=== PATIENT | female | born 1985 | race Caucasian/White ===

== ENCOUNTER 2020-04-03 10:46 | Emergency (ER) | payer BC, SELFPAY ==
[2020-04-03 11:04] VITALS: BP 124/81; PULSE 118; RESP 18; TEMP 36.8; O2SAT 100; BMI 27.4
--- NOTE | 2020-04-03 11:17 | DI.RAD.S_ITS ---
PROCEDURE: XR CHEST 1V INDICATIONS: chest pain TECHNIQUE: One view of the chest was acquired. COMPARISON: None. FINDINGS: Surgical changes and devices: None. Lungs and pleura: Lungs are clear. No pleural effusions or pneumothorax. Mediastinum: Mediastinal contours appear normal. Heart size is normal. Bones and chest wall: No suspicious bony lesions. Overlying soft tissues appear unremarkable. IMPRESSION: Portable chest within normal limits. Dictated by: Brian Garcia M.D. on 04/03/2020 at 10:40 Approved by: Brian Garcia M.D. on 04/03/2020 at 10:40
[2020-04-03 11:30] LABS: Add Manual Diff / Slide Review NO; Basophils Absolute Auto 100 /uL (0-100); Basophils Percent Auto 0.4 % (0-2); Eosinophils Absolute Auto 0 /uL (0-450); Hematocrit 34.2 % (36-46); Hemoglobin 10.9 g/dL (12.0-16.0); Lymphocytes Absolute Auto 1500 /uL (1100-4500); Lymphocytes Percent Auto 10.9 % (25-40); Mean Corpuscular HGB Conc 31.9 % (30-36); Mean Corpuscular Hemoglobin 25.4 PG (26-34); Mean Corpuscular Volume 79.9 fL (80-100); Monocytes Absolute Auto 800 /uL (0-900); Monocytes Percent Auto 6.1 % (3-14); Neutrophils Absolute Auto 11100 /uL (1500-7000); Neutrophils Percent Auto 82.6 % (50-75); Platelet Count 319 X10^3/uL (150-400); Red Blood Cell Count 4.28 X10^6/uL (4.0-5.2); Red Cell Distribution Width 14.9 % (11.6-14.8); White Blood Cell Count 13.4 X10^3/uL (4.5-11.0)
--- NOTE | 2020-04-03 11:30 | ED_ITS ---
HPI - Arrhythmia/Palpitations <BETTY MonroeBC - Last Filed: 04/03/20 16:30> General Chief Complaint: Arrhythmia/Palpitations Stated Complaint: issues with heart racing, feeling shaky Time Seen by Provider: 04/03/20 11:01 Source: patient Mode of arrival: Ambulatory Limitations: no limitations History of Present Illness HPI narrative: The patient is a 34-year-old female nonsmoker with history of appendectomy who presents with a chief complaint of high her rate and palpitations over the past few days. She states that she has a history of tachycardia, was diagnosed in emergency department several years ago and never followed up with anybody. She states that she has felt shaky with a high heart rate over the past 2 days. She states she feels some pressure in her chest. She denies any recent flights or immobility. She denies any hormone use. She denies any other cardiac history, denies any daily medications. She does note that she recently stopped taking escitalopram as she thought that the palpitations related to this. She has had 4 episodes of palpitations such as these for year, the longest episode has lasted for 4 days. She denies any cough, congestion, states she feels shaky and weak. She complains of lightheadedness dizziness. She has not taken anything to feel better. She states she is eating and drinking well, her states that she had water last night with crackers, but then had upset stomach. She has no specific coronavirus exposures. Related Data Previous Rx's Medication Instructions Recorded metoprolol tartrate 25 mg PO Q6H PRN #20 tab 04/03/20 Allergies Allergy/AdvReac Type Severity Reaction Status Date / Time No Known Drug Allergies Allergy Verified 04/03/20 11:59 Review of Systems <BETTY MonroeBC - Last Filed: 04/03/20 16:30> Review of Systems Narrative: GENERAL: Denies chills, fatigue, malaise, fever, sweats. HEENT: Denies sinus pain, ear pain, sore throat, difficulty swallowing, dizziness. RESPIRATORY: Denies dyspnea, cough, wheezing, hemoptysis, sputum. CARDIOVASCULAR: See HPI GASTROINTESTINAL: Denies nausea, vomiting, abdominal pain, diarrhea, constipation, melena. : Denies dysuria, frequency, incontinence, hematuria, urinary retention. MUSCULOSKELETAL: denies weakness, joint pain, or bony pain SKIN: Denies rash, skin lesions, or other NEUROLOGIC: Denies weakness, headache, numbness, change in speech, confusion, seizures, incoordination. PSYCHIATRIC: No concerning psychosocial issues. 12 point review of systems is negative except for those stated above Patient History <Moni MARGA Fleming-BC - Last Filed: 04/03/20 16:30> Social History Smoking Status: Never smoker Smoking Status: Never smoker Substance Use Type: does not use Exam <Moni BETTY FlemingBC - Last Filed: 04/03/20 16:30> Narrative Exam Narrative: GENERAL: This is a well-nourished, well-developed patient, appears anxious. HEAD: Atraumatic. Normocephalic. No temporal or scalp tenderness. EYES: Pupils equal round and reactive. Extraocular motions intact. No scleral icterus. No injection or drainage. ENT: Nose without bleeding, purulent drainage or septal hematoma. Throat without erythema, tonsillar hypertrophy or exudate. Uvula midline. Airway patent. NECK: Trachea midline. No JVD or lymphadenopathy. Supple, nontender, no meningeal signs. CARDIOVASCULAR: Tachycardic rate and regular rhythm RESPIRATORY: Clear to auscultation. Breath sounds equal bilaterally. No wheezes, rales, or rhonchi. No cough. No increased respiratory effort. No accessory muscle use. GASTROINTESTINAL: Abdomen soft, non-tender, nondistended. No hepato- splenomegaly, or palpable masses. No guarding. EXTREMITIES: No clubbing, cyanosis, or edema. No joint tenderness, effusion, or edema noted. BACK: Nontender without deformity or crepitance. No flank tenderness. NEURO: AOx3. SKIN: No rash or erythema on visible skin Initial Vital Signs Initial Vital Signs: Vital Signs Temperature 98.2 F 04/03/20 11:04 Pulse Rate 118 H 04/03/20 11:04 Respiratory Rate 18 04/03/20 11:04 Blood Pressure 124/81 04/03/20 11:04 Pulse Oximetry 100 04/03/20 11:04 <Lia Anderson MD - Last Filed: 04/04/20 07:34> Initial Vital Signs Initial Vital Signs: Vital Signs Temperature 98.2 F 04/03/20 11:04 Pulse Rate 118 H 04/03/20 11:04 Respiratory Rate 18 04/03/20 11:04 Blood Pressure 124/81 04/03/20 11:04 Pulse Oximetry 100 04/03/20 11:04 Scores <GILBERTO Monroe - Last Filed: 04/03/20 16:30> GCS Agar coma scale eye opening: Spontaneous Vin coma scale verbal response: Orientated Agar coma scale motor response: Obey commands Vin coma scale total score: 15 HEART Score Heart Score history: Slightly Suspicious Heart Score EKG: Normal Heart Score Age: < 45 years old Heart Score risk factors: No known risk factors Heart Score troponin: < or = to normal limit Heart Score Total: 0 Course <GILBERTO Monroe - Last Filed: 04/03/20 16:30> Orders Ordered: Discontinued Medications Sodium Chloride (Normal Saline 0.9%) 1,000 mls @ 1,000 mls/hr IV BOLUS ONE Stop: 04/03/20 12:16 Last Infusion: 04/03/20 13:04 Dose: 0 mls/hr Documented by: Admin: 04/03/20 12:10 Dose: 1,000 mls/hr Documented by: ESEQUIEL Sodium Chloride (Normal Saline 0.9%) 1,000 mls @ 1,000 mls/hr IV BOLUS ONE Stop: 04/03/20 14:15 Last Infusion: 04/03/20 14:58 Dose: 0 mls/hr Documented by: Admin: 04/03/20 13:21 Dose: 1,000 mls/hr Documented by: ESEQUIEL Metoprolol Tartrate (Metoprolol Ir 25 Mg Tablet) 25 mg PO NOW ONE Stop: 04/03/20 14:16 Last Admin: 04/03/20 14:27 Dose: 25 mg Documented by: ESEQUIEL Ondansetron HCl (Ondansetron 4 Mg/2 Ml Inj) 4 mg IV NOW ONE Stop: 04/03/20 11:18 Last Admin: 04/03/20 12:10 Dose: 4 mg Documented by: ESEQUIEL Vital Signs Vital signs: Vital Signs - 8 hr 04/03/20 11:04 04/03/20 12:53 04/03/20 14:30 Temperature 98.2 F Pulse Rate 118 H 117 H 112 H Pulse Rate [Orthostatic Lying] Pulse Rate [Orthostatic Sitting] Pulse Rate [Orthostatic Standing] Respiratory Rate 18 35 H 25 H Blood Pressure 124/81 103/64 107/63 Blood Pressure [Orthostatic Lying] Blood Pressure [Orthostatic Sitting] Blood Pressure [Orthostatic Standing] Pulse Oximetry 100 100 99 04/03/20 15:41 Temperature Pulse Rate Pulse Rate [Orthostatic Lying] 89 Pulse Rate [Orthostatic Sitting] 92 H Pulse Rate [Orthostatic Standing] 83 Respiratory Rate Blood Pressure Blood Pressure [Orthostatic Lying] 98/54 L Blood Pressure [Orthostatic Sitting] 116/73 Blood Pressure [Orthostatic Standing] 112/70 Pulse Oximetry <Lia Anderson MD - Last Filed: 04/04/20 07:34> Orders Ordered: Discontinued Medications Sodium Chloride (Normal Saline 0.9%) 1,000 mls @ 1,000 mls/hr IV BOLUS ONE Stop: 04/03/20 12:16 Last Infusion: 04/03/20 13:04 Dose: 0 mls/hr Documented by: Admin: 04/03/20 12:10 Dose: 1,000 mls/hr Documented by: ESEQUIEL Sodium Chloride (Normal Saline 0.9%) 1,000 mls @ 1,000 mls/hr IV BOLUS ONE Stop: 04/03/20 14:15 Last Infusion: 04/03/20 14:58 Dose: 0 mls/hr Documented by: Admin: 04/03/20 13:21 Dose: 1,000 mls/hr Documented by: ESEQUIEL Metoprolol Tartrate (Metoprolol Ir 25 Mg Tablet) 25 mg PO NOW ONE Stop: 04/03/20 14:16 Last Admin: 04/03/20 14:27 Dose: 25 mg Documented by: ESEQUIEL Ondansetron HCl (Ondansetron 4 Mg/2 Ml Inj) 4 mg IV NOW ONE Stop: 04/03/20 11:18 Last Admin: 04/03/20 12:10 Dose: 4 mg Documented by: ESEQUIEL Vital Signs Vital signs: Vital Signs - 8 hr 04/03/20 11:04 04/03/20 12:53 04/03/20 14:30 Temperature 98.2 F Pulse Rate 118 H 117 H 112 H Pulse Rate [Orthostatic Lying] Pulse Rate [Orthostatic Sitting] Pulse Rate [Orthostatic Standing] Respiratory Rate 18 35 H 25 H Blood Pressure 124/81 103/64 107/63 Blood Pressure [Orthostatic Lying] Blood Pressure [Orthostatic Sitting] Blood Pressure [Orthostatic Standing] Pulse Oximetry 100 100 99 04/03/20 15:41 Temperature Pulse Rate Pulse Rate [Orthostatic Lying] 89 Pulse Rate [Orthostatic Sitting] 92 H Pulse Rate [Orthostatic Standing] 83 Respiratory Rate Blood Pressure Blood Pressure [Orthostatic Lying] 98/54 L Blood Pressure [Orthostatic Sitting] 116/73 Blood Pressure [Orthostatic Standing] 112/70 Pulse Oximetry MDM - Arrhythmia/Palpitations <Moni Fleming, HOME MANAGER-BC - Last Filed: 04/03/20 16:30> Lab Data Attestation: I reviewed the patient's lab results. Result diagrams: 04/03/20 11:12 04/03/20 11:12 Labs: Lab Results 04/03/20 04/03/20 04/03/20 Range/Units 11:12 11:12 11:12 WBC 13.4 H (4.5-11.0) X10^3/uL RBC 4.28 (4.0-5.2) X10^6/uL Hgb 10.9 L (12.0-16.0) g/dL Hct 34.2 L (36-46) % MCV 79.9 L (80-100) fL MCH 25.4 L (26-34) PG MCHC 31.9 (30-36) % RDW 14.9 H (11.6-14.8) % Plt Count 319 (150-400) X10^3/uL Neut % (Auto) 82.6 H (50-75) % Lymph % (Auto) 10.9 L (25-40) % [place] % (Auto) 6.1 (3-14) % Eos % (Auto) 0.0 L (2-4) % Baso % (Auto) 0.4 (0-2) % Neut # (Auto) 58029 H (1006-3753) /uL Lymph # (Auto) 1500 (5755-2985) /uL [place] # (Auto) 800 (0-900) /uL Eos # (Auto) 0 (0-450) /uL Baso # (Auto) 100 (0-100) /uL PT 12.2 (10.1-12.7) SECONDS INR 1.1 (0.9-1.3) APTT 31 (26.4-36.2) SECONDS Sodium 138 (137-145) mmol/L Potassium 3.8 (3.4-5.1) mmol/L Chloride 105 (98-107) mmol/L Carbon Dioxide 24 (22-32) mmol/L BUN 6 L (7-17) mg/dL Creatinine 0.71 (0.52-1.04) mg/dL Estimated GFR > 60.0 (>60) mL/min BUN/Creatinine Ratio 8.5 (6-22) Glucose 105 H (70-100) mg/dL Calcium 9.3 (8.4-10.2) mg/dL Magnesium 1.9 (1.6-2.3) mg/dL Total Bilirubin 0.7 (0.2-1.3) mg/dL AST 31 (14-36) IU/L ALT 14 (<35) IU/L Alkaline Phosphatase 65 (38-126) U/L Total Creatine Kinase 67 (30-135) U/L CK-MB (CK-2) TNP CK-MB (CK-2) Rel Index TNP Troponin I < 0.012 (0.01-0.034) ng/mL NT-Pro-B Natriuret Pep 105 (<125) pg/mL Total Protein 7.5 (6.3-8.2) g/dL Albumin 4.5 (3.5-5.0) g/dL Globulin 3.0 (1.7-4.1) g/dL Albumin/Globulin Ratio 1.5 (1.0-2.8) TSH (0.47-4.68) uIU/mL Urine RBC (0-5/HPF) Urine WBC (0-5/HPF) Ur Squamous Epith Cells (0-5/HPF) Urine Bacteria (None) Ur Culture Indicated? U Opiates 300ng/mL cut (Negative) Ur Oxycodone Screen (Negative) Urine Methadone Screen (Negative) Ur Barbiturates Screen (Negative) U Tricyclic Antidepress (Negative) Ur Phencyclidine Scrn (Negative) Ur Amphetamines Screen (Negative) U Methamphetamines Scrn (Negative) Ur MDMA Scrn (Ecstasy) (Negative) U Benzodiazepines Scrn (Negative) Urine Cocaine Screen (Negative) U Marijuana (THC) Screen (Negative) SARS-CoV-2 (PCR) (Negative) 04/03/20 04/03/20 04/03/20 Range/Units 11:12 11:24 12:29 WBC (4.5-11.0) X10^3/uL RBC (4.0-5.2) X10^6/uL Hgb (12.0-16.0) g/dL Hct (36-46) % MCV (80-100) fL MCH (26-34) PG MCHC (30-36) % RDW (11.6-14.8) % Plt Count (150-400) X10^3/uL Neut % (Auto) (50-75) % Lymph % (Auto) (25-40) % [place] % (Auto) (3-14) % Eos % (Auto) (2-4) % Baso % (Auto) (0-2) % Neut # (Auto) (1750-0805) /uL Lymph # (Auto) (7077-7670) /uL [place] # (Auto) (0-900) /uL Eos # (Auto) (0-450) /uL Baso # (Auto) (0-100) /uL PT (10.1-12.7) SECONDS INR (0.9-1.3) APTT (26.4-36.2) SECONDS Sodium (137-145) mmol/L Potassium (3.4-5.1) mmol/L Chloride (98-107) mmol/L Carbon Dioxide (22-32) mmol/L BUN (7-17) mg/dL Creatinine (0.52-1.04) mg/dL Estimated GFR (>60) mL/min BUN/Creatinine Ratio (6-22) Glucose (70-100) mg/dL Calcium (8.4-10.2) mg/dL Magnesium (1.6-2.3) mg/dL Total Bilirubin (0.2-1.3) mg/dL AST (14-36) IU/L ALT (<35) IU/L Alkaline Phosphatase (38-126) U/L Total Creatine Kinase (30-135) U/L CK-MB (CK-2) CK-MB (CK-2) Rel Index Troponin I (0.01-0.034) ng/mL NT-Pro-B Natriuret Pep (<125) pg/mL Total Protein (6.3-8.2) g/dL Albumin (3.5-5.0) g/dL Globulin (1.7-4.1) g/dL Albumin/Globulin Ratio (1.0-2.8) TSH 1.72 (0.47-4.68) uIU/mL Urine RBC 0-1/hpf (0-5/HPF) Urine WBC None seen (0-5/HPF) Ur Squamous Epith Cells 1-5 /hpf (0-5/HPF) Urine Bacteria Few (2-10) H (None) Ur Culture Indicated? Cult not indicated U Opiates 300ng/mL cut (Negative) Ur Oxycodone Screen (Negative) Urine Methadone Screen (Negative) Ur Barbiturates Screen (Negative) U Tricyclic Antidepress (Negative) Ur Phencyclidine Scrn (Negative) Ur Amphetamines Screen (Negative) U Methamphetamines Scrn (Negative) Ur MDMA Scrn (Ecstasy) (Negative) U Benzodiazepines Scrn (Negative) Urine Cocaine Screen (Negative) U Marijuana (THC) Screen (Negative) SARS-CoV-2 (PCR) Negative (Negative) 04/03/20 Range/Units 12:59 WBC (4.5-11.0) X10^3/uL RBC (4.0-5.2) X10^6/uL Hgb (12.0-16.0) g/dL Hct (36-46) % MCV (80-100) fL MCH (26-34) PG MCHC (30-36) % RDW (11.6-14.8) % Plt Count (150-400) X10^3/uL Neut % (Auto) (50-75) % Lymph % (Auto) (25-40) % [place] % (Auto) (3-14) % Eos % (Auto) (2-4) % Baso % (Auto) (0-2) % Neut # (Auto) (9886-3949) /uL Lymph # (Auto) (9854-4177) /uL [place] # (Auto) (0-900) /uL Eos # (Auto) (0-450) /uL Baso # (Auto) (0-100) /uL PT (10.1-12.7) SECONDS INR (0.9-1.3) APTT (26.4-36.2) SECONDS Sodium (137-145) mmol/L Potassium (3.4-5.1) mmol/L Chloride (98-107) mmol/L Carbon Dioxide (22-32) mmol/L BUN (7-17) mg/dL Creatinine (0.52-1.04) mg/dL Estimated GFR (>60) mL/min BUN/Creatinine Ratio (6-22) Glucose (70-100) mg/dL Calcium (8.4-10.2) mg/dL Magnesium (1.6-2.3) mg/dL Total Bilirubin (0.2-1.3) mg/dL AST (14-36) IU/L ALT (<35) IU/L Alkaline Phosphatase (38-126) U/L Total Creatine Kinase (30-135) U/L CK-MB (CK-2) CK-MB (CK-2) Rel Index Troponin I (0.01-0.034) ng/mL NT-Pro-B Natriuret Pep (<125) pg/mL Total Protein (6.3-8.2) g/dL Albumin (3.5-5.0) g/dL Globulin (1.7-4.1) g/dL Albumin/Globulin Ratio (1.0-2.8) TSH (0.47-4.68) uIU/mL Urine RBC (0-5/HPF) Urine WBC (0-5/HPF) Ur Squamous Epith Cells (0-5/HPF) Urine Bacteria (None) Ur Culture Indicated? U Opiates 300ng/mL cut Negative (Negative) Ur Oxycodone Screen Negative (Negative) Urine Methadone Screen Negative (Negative) Ur Barbiturates Screen Negative (Negative) U Tricyclic Antidepress Negative (Negative) Ur Phencyclidine Scrn Negative (Negative) Ur Amphetamines Screen Negative (Negative) U Methamphetamines Scrn Negative (Negative) Ur MDMA Scrn (Ecstasy) Negative (Negative) U Benzodiazepines Scrn Negative (Negative) Urine Cocaine Screen Negative (Negative) U Marijuana (THC) Screen Negative (Negative) SARS-CoV-2 (PCR) (Negative) Point of Care Testing Test Results Negative Urine Dip Bedside Urine Glucose Negative Bedside Urine Bilirubin - Negative Bedside Urine Ketone +++ 80 Urine Specific [place] 1.015 Bedside Urine Occult Blood - Negative Bedside Urine pH 6.0 Bedside Urine Protein - Negative Bedside Urine Urobilinogen - Negative Bedside Urine Nitrite - Negative Bedside Urine Leukocytes - Negative Esterase Imaging Data Chest x-ray: Radiologist's Impresson: [address] [place], [place] [id number] Rep ortSigned Patient: Penny Guardado LynnMR#: [id number]: [id number]:[id number]/Sex: 34 / FDate of Service: 04/03/20Loc: EDAccession Number: [id number] Procedure: XR chest 1V Ordering Provider: Moni Fleming PROCEDURE: XR CHEST 1V INDICATIONS: chest pain TECHNIQUE: One view of the chest was acquired. COMPARISON: None. FINDINGS: Surgical changes and devices: None. Lungs and pleura: Lungs are clear. No pleural effusions or pneumothorax. Mediastinum: Mediastinal contours appear normal. Heart size is normal. Bones and chest wall: No suspicious bony lesions. Overlying soft tissues appear unremarkable. IMPRESSION: Portable chest within normal limits. Dictated by: Brian Garcia M.D. on 04/03/2020 at 10:40 Approved by: Brian Garcia M.D. on 04/03/2020 at 10:40 ECG Data Attestation: I personally reviewed and interpreted this ECG as follows: Interpretation: Sinus tachycardia. Ventricular rate 114. P.r. interval 152. QRS 78. viewed by Dr Anderson MDM Narrative Medical decision making narrative: The patient is a 34-year-old female who presents with a chief complaint of a persistently high heart rate for the past few days. She has a history of tachycardia for which she has never followed up with anybody. EKG shows sinus tachycardia, chest x-ray is no acute findings, troponin is negative, BNP is negative, TSH is within normal limits. Given her persistently tachycardic status, she was given a CT to rule out pulmonary em bolism in this came back negative. She was given 2 L of IV fluid. However she still remains tachycardic in the low to mid 100s. I spoke with Dr Anderson who encourage trial of 25 mg p.o. metoprolol as needed. With metoprolol, the patient became sinus rhythm, heart rate in the high 80s and felt much better. I discussed at length with the patient that she needs follow-up with primary care provider, she may benefit from a Holter monitor or Zio patch. I did give her a few days off of work. Encouraged very strict return precautions the emergency department for any cardiac concerns etcetera. Patient part of no questions or concerns upon discharge and state understanding of return precautions as well as follow-up care. <Lia Anderson MD - Last Filed: 04/04/20 07:34> Lab Data Labs: Lab Results 04/03/20 04/03/20 04/03/20 Range/Units 11:12 11:12 11:12 WBC 13.4 H (4.5-11.0) X10^3/uL RBC 4.28 (4.0-5.2) X10^6/uL Hgb 10.9 L (12.0-16.0) g/dL Hct 34.2 L (36-46) % MCV 79.9 L (80-100) fL MCH 25.4 L (26-34) PG MCHC 31.9 (30-36) % RDW 14.9 H (11.6-14.8) % Plt Count 319 (150-400) X10^3/uL Neut % (Auto) 82.6 H (50-75) % Lymph % (Auto) 10.9 L (25-40) % [place] % (Auto) 6.1 (3-14) % Eos % (Auto) 0.0 L (2-4) % Baso % (Auto) 0.4 (0-2) % Neut # (Auto) 45627 H (0473-8713) /uL Lymph # (Auto) 1500 (9253-5970) /uL [place] # (Auto) 800 (0-900) /uL Eos # (Auto) 0 (0-450) /uL Baso # (Auto) 100 (0-100) /uL PT 12.2 (10.1-12.7) SECONDS INR 1.1 (0.9-1.3) APTT 31 (26.4-36.2) SECONDS Sodium 138 (137-145) mmol/L Potassium 3.8 (3.4-5.1) mmol/L Chloride 105 (98-107) mmol/L Carbon Dioxide 24 (22-32) mmol/L BUN 6 L (7-17) mg/dL Creatinine 0.71 (0.52-1.04) mg/dL Estimated GFR > 60.0 (>60) mL/min BUN/Creatinine Ratio 8.5 (6-22) Glucose 105 H (70-100) mg/dL Calcium 9.3 (8.4-10.2) mg/dL Magnesium 1.9 (1.6-2.3) mg/dL Total Bilirubin 0.7 (0.2-1.3) mg/dL AST 31 (14-36) IU/L ALT 14 (<35) IU/L Alkaline Phosphatase 65 (38-126) U/L Total Creatine Kinase 67 (30-135) U/L CK-MB (CK-2) TNP CK-MB (CK-2) Rel Index TNP Troponin I < 0.012 (0.01-0.034) ng/mL NT-Pro-B Natriuret Pep 105 (<125) pg/mL Total Protein 7.5 (6.3-8.2) g/dL Albumin 4.5 (3.5-5.0) g/dL Globulin 3.0 (1.7-4.1) g/dL Albumin/Globulin Ratio 1.5 (1.0-2.8) TSH (0.47-4.68) uIU/mL Urine RBC (0-5/HPF) Urine WBC (0-5/HPF) Ur Squamous Epith Cells (0-5/HPF) Urine Bacteria (None) Ur Culture Indicated? U Opiates 300ng/mL cut (Negative) Ur Oxycodone Screen (Negative) Urine Methadone Screen (Negative) Ur Barbiturates Screen (Negative) U Tricyclic Antidepress (Negative) Ur Phencyclidine Scrn (Negative) Ur Amphetamines Screen (Negative) U Methamphetamines Scrn (Negative) Ur MDMA Scrn (Ecstasy) (Negative) U Benzodiazepines Scrn (Negative) Urine Cocaine Screen (Negative) U Marijuana (THC) Screen (Negative) SARS-CoV-2 (PCR) (Negative) 04/03/20 04/03/20 04/03/20 Range/Units 11:12 11:24 12:29 WBC (4.5-11.0) X10^3/uL RBC (4.0-5.2) X10^6/uL Hgb (12.0-16.0) g/dL Hct (36-46) % MCV (80-100) fL MCH (26-34) PG MCHC (30-36) % RDW (11.6-14.8) % Plt Count (150-400) X10^3/uL Neut % (Auto) (50-75) % Lymph % (Auto) (25-40) % [place] % (Auto) (3-14) % Eos % (Auto) (2-4) % Baso % (Auto) (0-2) % Neut # (Auto) (0335-8522) /uL Lymph # (Auto) (6641-3659) /uL [place] # (Auto) (0-900) /uL Eos # (Auto) (0-450) /uL Baso # (Auto) (0-100) /uL PT (10.1-12.7) SECONDS INR (0.9-1.3) APTT (26.4-36.2) SECONDS Sodium (137-145) mmol/L Potassium (3.4-5.1) mmol/L Chloride (98-107) mmol/L Carbon Dioxide (22-32) mmol/L BUN (7-17) mg/dL Creatinine (0.52-1.04) mg/dL Estimated GFR (>60) mL/min BUN/Creatinine Ratio (6-22) Glucose (70-100) mg/dL Calcium (8.4-10.2) mg/dL Magnesium (1.6-2.3) mg/dL Total Bilirubin (0.2-1.3) mg/dL AST (14-36) IU/L ALT (<35) IU/L Alkaline Phosphatase (38-126) U/L Total Creatine Kinase (30-135) U/L CK-MB (CK-2) CK-MB (CK-2) Rel Index Troponin I (0.01-0.034) ng/mL NT-Pro-B Natriuret Pep (<125) pg/mL Total Protein (6.3-8.2) g/dL Albumin (3.5-5.0) g/dL Globulin (1.7-4.1) g/dL Albumin/Globulin Ratio (1.0-2.8) TSH 1.72 (0.47-4.68) uIU/mL Urine RBC 0-1/hpf (0-5/HPF) Urine WBC None seen (0-5/HPF) Ur Squamous Epith Cells 1-5 /hpf (0-5/HPF) Urine Bacteria Few (2-10) H (None) Ur Culture Indicated? Cult not indicated U Opiates 300ng/mL cut (Negative) Ur Oxycodone Screen (Negative) Urine Methadone Screen (Negative) Ur Barbiturates Screen (Negative) U Tricyclic Antidepress (Negative) Ur Phencyclidine Scrn (Negative) Ur Amphetamines Screen (Negative) U Methamphetamines Scrn (Negative) Ur MDMA Scrn (Ecstasy) (Negative) U Benzodiazepines Scrn (Negative) Urine Cocaine Screen (Negative) U Marijuana (THC) Screen (Negative) SARS-CoV-2 (PCR) Negative (Negative) 04/03/20 Range/Units 12:59 WBC (4.5-11.0) X10^3/uL RBC (4.0-5.2) X10^6/uL Hgb (12.0-16.0) g/dL Hct (36-46) % MCV (80-100) fL MCH (26-34) PG MCHC (30-36) % RDW (11.6-14.8) % Plt Count (150-400) X10^3/uL Neut % (Auto) (50-75) % Lymph % (Auto) (25-40) % [place] % (Auto) (3-14) % Eos % (Auto) (2-4) % Baso % (Auto) (0-2) % Neut # (Auto) (8320-7937) /uL Lymph # (Auto) (1244-3792) /uL [place] # (Auto) (0-900) /uL Eos # (Auto) (0-450) /uL Baso # (Auto) (0-100) /uL PT (10.1-12.7) SECONDS INR (0.9-1.3) APTT (26.4-36.2) SECONDS Sodium (137-145) mmol/L Potassium (3.4-5.1) mmol/L Chloride (98-107) mmol/L Carbon Dioxide (22-32) mmol/L BUN (7-17) mg/dL Creatinine (0.52-1.04) mg/dL Estimated GFR (>60) mL/min BUN/Creatinine Ratio (6-22) Glucose (70-100) mg/dL Calcium (8.4-10.2) mg/dL Magnesium (1.6-2.3) mg/dL Total Bilirubin (0.2-1.3) mg/dL AST (14-36) IU/L ALT (<35) IU/L Alkaline Phosphatase (38-126) U/L Total Creatine Kinase (30-135) U/L CK-MB (CK-2) CK-MB (CK-2) Rel Index Troponin I (0.01-0.034) ng/mL NT-Pro-B Natriuret Pep (<125) pg/mL Total Protein (6.3-8.2) g/dL Albumin (3.5-5.0) g/dL Globulin (1.7-4.1) g/dL Albumin/Globulin Ratio (1.0-2.8) TSH (0.47-4.68) uIU/mL Urine RBC (0-5/HPF) Urine WBC (0-5/HPF) Ur Squamous Epith Cells (0-5/HPF) Urine Bacteria (None) Ur Culture Indicated? U Opiates 300ng/mL cut Negative (Negative) Ur Oxycodone Screen Negative (Negative) Urine Methadone Screen Negative (Negative) Ur Barbiturates Screen Negative (Negative) U Tricyclic Antidepress Negative (Negative) Ur Phencyclidine Scrn Negative (Negative) Ur Amphetamines Screen Negative (Negative) U Methamphetamines Scrn Negative (Negative) Ur MDMA Scrn (Ecstasy) Negative (Negative) U Benzodiazepines Scrn Negative (Negative) Urine Cocaine Screen Negative (Negative) U Marijuana (THC) Screen Negative (Negative) SARS-CoV-2 (PCR) (Negative) Point of Care Testing Test Results Negative Urine Dip Bedside Urine Glucose Negative Bedside Urine Bilirubin - Negative Bedside Urine Ketone +++ 80 Urine Specific [place] 1.015 Bedside Urine Occult Blood - Negative Bedside Urine pH 6.0 Bedside Urine Protein - Negative Bedside Urine Urobilinogen - Negative Bedside Urine Nitrite - Negative Bedside Urine Leukocytes - Negative Esterase Discharge Plan Departure Patient Disposition: Home Clinical Impression: Sinus tachycardia Instructions: DI for Tachycardia Activity Restrictions/Additional Instructions: Thank you for trusting us with your care today. As discussed, your lab work came back reassuring, your chest x-ray shows no pneumonia, your CT shows no evidence of a blood clot in your lung, which is excellent news We have tried medication to prevent your heart rate from getting too high. I sent this prescription to [facility] in [place]. He can use this every 6 hours as needed for a high heart rate. Do not take it more often than this. As discussed, please follow-up with primary care provider in the next few days. I have given you contact information to the [facility] human resources advisor, who can help you identify a new primary care. I would like you to follow-up regarding your heart rate. Additionally your lab work shows a low level of anemia, which might benefit from follow-up. As discussed, please come back to the emergency department for any acute concerns. Please rest and push fluids over the next few days Prescriptions: New metoprolol tartrate 25 mg tablet 25 mg PO Q6H PRN (Reason: tachycardia) Qty: 20 RF: 0 Referrals: [facility] [Outside] Stand Alone Forms: Work Release Note <Lia Anderson MD - Last Filed: 04/04/20 07:34> Cosign ED Attending [employer] [facility] I was immediately available in the department for consultation throughout this patient's visit. I agree with documentation as above. Lia Anderson MD
[2020-04-03 11:48] LABS: COVID19 -Nasal RAPID Negative (Negative)
[2020-04-03] MEDS: ONDANSETRON 4 MG/2 ML INJ IV (12:10)
[2020-04-03] MEDS: SODIUM CHLORIDE 0.9% 1,000 ML 1000 ML IV ×2 (12:10→13:21)
[2020-04-03 12:46] LABS: Thyroid Stimulating Hormone 1.72 uIU/mL (0.47-4.68)
[2020-04-03 12:47] LABS: Alanine Aminotransferase 14 IU/L (<35); Albumin 4.5 g/dL (3.5-5.0); Albumin Globulin Ratio 1.5 (1.0-2.8); Alkaline Phosphatase 65 U/L (38-126); Aspartate Aminotransferase 31 IU/L (14-36); BUN Creatinine Ratio 8.5 (6-22); Bilirubin Total 0.7 mg/dL (0.2-1.3); Blood Urea Nitrogen 6 mg/dL (7-17); Calcium 9.3 mg/dL (8.4-10.2); Carbon Dioxide 24 mmol/L (22-32); Chloride 105 mmol/L (98-107); Creatine Kinase 67 U/L (30-135); Estimated Glomerular Filt Rate > 60.0 mL/min (>60); Glucose 105 mg/dL (70-100); HEMOLYSIS < 15 (0-50); Potassium 3.8 mmol/L (3.4-5.1); Sodium 138 mmol/L (137-145); Total Protein 7.5 g/dL (6.3-8.2)
--- NOTE | 2020-04-03 12:52 | DI.CT.S_ITS ---
PROCEDURE: CT ANGIO CHEST PE PROTOCOL INDICATIONS: tachy, chest pain TECHNIQUE: After the administration of intravenous contrast, 2 mm thick sections acquired from the pulmonary apices to the posterior costophrenic angles. 3-dimensional maximum intensity projection (MIP) coronal and sagittal reformats were then acquired through the thorax. For radiation dose reduction, the following was used: automated exposure control, adjustment of mA and/or kV according to patient size. COMPARISON: None. FINDINGS: Image quality: Suboptimal due to poor contrast opacification. Pulmonary arteries: Suboptimal assessment secondary secondary to heterogeneous opacification of the pulmonary arteries however discrete filling defects seen within the central pulmonary arteries. Scattered subsegmental atelectasis and/or scarring. No focal consolidation. Few punctate calcified granulomas. No pleural effusions or pneumothorax. Central and peripheral airways are patent. Mediastinum: Heart size is normal, without pericardial effusion. No mediastinal or hilar adenopathy. Thoracic aorta is normal in caliber and enhancement. Esophagus is normal in caliber, without hiatal hernia. Bones and chest wall: No suspicious bony lesions. Ribs and thoracic spine appear intact throughout. Thyroid is grossly unremarkable No axillary or supraclavicular adenopathy. Abdomen: Visualized upper abdominal solid organs appear normal in the early arterial phase of enhancement. IMPRESSION: No evidence of pulmonary embolism. No aortic dissection identified. No acute consolidation Dictated by: Shankar Pfeiffer M.D. on 04/03/2020 at 13:26 Approved by: Shankar Pfeiffer M.D. on 04/03/2020 at 13:30
[2020-04-03 12:53] VITALS: BP 103/64; PULSE 117; RESP 35; O2SAT 100
[2020-04-03 12:53] LABS: WBC Urine None Seen (0-5/HPF)
[2020-04-03 12:54] LABS: Magnesium 1.9 mg/dL (1.6-2.3)
[2020-04-03 12:59] LABS: NT-proBNP (BNP-Adult 18+) 105 pg/mL (<125); Troponin I < 0.012 ng/mL (0.01-0.034)
[2020-04-03 13:12] LABS: Bacteria Urine Few (2-10); Culture Indicated Urine Cult Not Indicated; RBC Urine 0-1/HPF (0-5/HPF); Squamous Epithelial Cell Urine 1-5 /HPF (0-5/HPF)
[2020-04-03 13:23] LABS: UR Morphine/Opiate cutoff 300 Negative (Negative); Ur Creatinine Normal (Normal); Ur Specific Gravity Normal (Normal); Urine Amphetamines Negative (Negative); Urine Barbiturates Negative (Negative); Urine Benzodiazepines Negative (Negative); Urine Cocaine Negative (Negative); Urine MDMA Negative (Negative); Urine Methadone Negative (Negative); Urine Methamphetamines Negative (Negative); Urine Oxycodone Negative (Negative); Urine Phencyclidine Negative (Negative); Urine Tetrahydrocannabinol Negative (Negative); Urine Tricyclic Antidepressant Negative (Negative); Urine pH Normal (Normal)
[2020-04-03 13:25] LABS: PTT Partial Thromboplastin Tim 31 SECONDS (26.4-36.2)
[2020-04-03 13:26] LABS: INR 1.1 (0.9-1.3); Prothrombin Time 12.2 SECONDS (10.1-12.7)
[2020-04-03] MEDS: METOPROLOL IR 25 MG TABLET PO (14:27)
[2020-04-03 14:30] VITALS: BP 107/63; PULSE 112; RESP 25; O2SAT 99
[2020-04-03 15:41] VITALS: BP 112/70; BP 116/73; BP 98/54; PULSE 83; PULSE 89; PULSE 92
== END 2020-04-03 15:45 | disposition home or self-care (01) ==
PROVIDERS: Emergency Provider Nurse Practitioner Family
DX: R00.0 Tachycardia, unspecified (principal); R07.9 Chest pain, unspecified; R42 Dizziness and giddiness; F41.9 Anxiety disorder, unspecified; Z20.822 Contact with and (suspected) exposure to COVID-19
CPT/HCPCS: 36415; 71045; 71275; 80053; 80305; 81003; 81015; 81025; 82550; 83735; 83880; 84443; 84484; 85025; 85610; 85730; 87635; 93005; 96361; 96374; 99284; C9803; J2405; Q9967

== ENCOUNTER → 2020-04-23 09:53 | Outpatient (CLI) | payer BC, SELFPAY ==
--- NOTE | 2020-05-12 08:38 | PM.CARDMON.1 ---
Balance Recesser Report Referral & Results Date Patient Seen: 04/23/20 Requesting provider: Serina Enriquez Indication: Tachycardia Duration of monitoring (days): 7 Diary information: There were 3 patient triggered events and 2 patient diary entries These events were associated with (within 45 seconds) sinus rhythm and PVCs Data: Minimum heart rate identified was 47 beats per minute at 04:45 on 04/28/2020 Maximum sinus heart rate was 154 beats per minute at 05:28 on 04/24/2020 Less than 1% of identified beats were supraventricular ectopic in origin Approximately 1.8% of identified beats were ventricular ectopic in origin which would rate them as occasional, this included a 20.2nd run of ventricular trigeminy and a 5.2nd run of ventricular bigeminy Impression: Patient with occasional PVCs as above
== END ==
PROVIDERS: PCP Registered Nurse; Referring Provider Registered Nurse; Visit Provider Registered Nurse
DX: R00.0 Tachycardia, unspecified (principal)
CPT/HCPCS: 93242; 93244

== ENCOUNTER → 2020-05-01 08:32 | Outpatient (CLI) | payer BC, SELFPAY ==
[2020-05-01 09:39] LABS: Add Manual Diff / Slide Review NO; Basophils Absolute Auto 0 /uL (0-100); Basophils Percent Auto 0.3 % (0-2); Eosinophils Absolute Auto 0 /uL (0-450); Eosinophils Percent Auto 0.4 % (2-4); Hematocrit 33.8 % (36-46); Hemoglobin 11.1 g/dL (12.0-16.0); Lymphocytes Absolute Auto 1800 /uL (1100-4500); Lymphocytes Percent Auto 19.9 % (25-40); Mean Corpuscular HGB Conc 32.7 % (30-36); Mean Corpuscular Hemoglobin 27.3 PG (26-34); Mean Corpuscular Volume 83.3 fL (80-100); Monocytes Absolute Auto 700 /uL (0-900); Monocytes Percent Auto 7.9 % (3-14); Neutrophils Absolute Auto 6500 /uL (1500-7000); Neutrophils Percent Auto 71.5 % (50-75); Platelet Count 266 X10^3/uL (150-400); Red Blood Cell Count 4.06 X10^6/uL (4.0-5.2); Red Cell Distribution Width 15.2 % (11.6-14.8); White Blood Cell Count 9.1 X10^3/uL (4.5-11.0)
[2020-05-01 09:41] LABS: Alanine Aminotransferase 12 IU/L (<35); Albumin 3.9 g/dL (3.5-5.0); Albumin Globulin Ratio 1.4 (1.0-2.8); Alkaline Phosphatase 55 U/L (38-126); Aspartate Aminotransferase 27 IU/L (14-36); BUN Creatinine Ratio 15.9 (6-22); Bilirubin Total 0.4 mg/dL (0.2-1.3); Blood Urea Nitrogen 14 mg/dL (7-17); Calcium 9.2 mg/dL (8.4-10.2); Carbon Dioxide 28 mmol/L (22-32); Chloride 104 mmol/L (98-107); Cholesterol 157 mg/dL (140-199); Estimated Glomerular Filt Rate > 60.0 mL/min (>60); Globulin 2.7 g/dL (1.7-4.1); Glucose 88 mg/dL (70-100); HDL Cholesterol 55 mg/dL (40-60); HEMOLYSIS < 15 (0-50); LDL Cholesterol Calculated 87 mg/dL (<100); Sodium 136 mmol/L (137-145); Total Protein 6.6 g/dL (6.3-8.2); Triglycerides 74 mg/dL (35-150)
== END ==
PROVIDERS: PCP Registered Nurse; Referring Provider Registered Nurse; Visit Provider Registered Nurse
DX: D64.9 Anemia, unspecified (principal); R00.0 Tachycardia, unspecified; Z82.49 Family history of ischemic heart disease and other diseases of the circulatory system
CPT/HCPCS: 36415; 80053; 80061; 85025

== ENCOUNTER → 2020-05-08 14:07 | Outpatient (CLI) | payer BC, SELFPAY ==
[2020-05-08 15:27] LABS: Total Iron Binding Capacity 422 ug/dL (265-497)
[2020-05-08 15:48] LABS: Ferritin 5 ng/mL (6-137)
== END ==
PROVIDERS: PCP Registered Nurse; Referring Provider Registered Nurse; Visit Provider Registered Nurse
DX: D64.9 Anemia, unspecified (principal)
CPT/HCPCS: 36415; 82728; 83550

== ENCOUNTER → 2020-09-11 12:35 | Outpatient (CLI) | payer BC, SELFPAY ==
--- NOTE | 2020-09-11 12:36 | DI.RAD.S_ITS ---
PROCEDURE: HL HYSTEROSAPINGOGRAPHY INDICATIONS: Hx of tubal COMPARISON: None. FINDINGS: Patient had a documented negative test prior to the study. Following speculum insertion, a balloon-tip catheter was inserted into the cervical canal, and secured by inflating the balloon. Contrast was then injected into the endometrial canal. Uterus: The uterine cavity not well seen secondary to anatomic position. Fallopian tubes: Both fallopian tubes fill with contrast to level of the isthmic segment on the left and the ampullary segment on the right , however there is no further progression. There is no dispersion of contrast into the peritoneal cavity. IMPRESSION: Occluded fallopian tubes bilaterally as above. Dictated by: Shankar Pfeiffer M.D. on 09/11/2020 at 16:28 Approved by: Shankar Pfeiffer M.D. on 09/11/2020 at 16:30
--- NOTE | 2020-09-13 14:58 | PM.PROC.1 ---
Procedures Date/Time Date of procedure: 09/11/20 Time of procedure: 13:45 General Procedure description: This patient is a 34-year-old para 3 with a history of tubal ligation during her 3rd section, desiring future fertility and presenting for a hysterosalpingogram to document the presence or absence of tubal patency. A test was negative and informed consent was obtained, and consents were signed. Patient was placed in the dorsal lithotomy position on a bedpan on the x-ray table, and a sterile speculum was placed into the vagina. The cervix was easily visualized and prepped with Betadine x3. An HSG catheter was gently passed through the cervix into the endometrial canal, inflated with 3 cc of air. The speculum was removed. Radiopaque dye was gently injected through the catheter, with serial x-rays taken. Uterus was noted to be quite anteverted consistent with 3 prior sections. Dye was shown to pass into each fallopian tube, to the level of the ampulla on 1 side and the isthmus on the other. No further passage of dye was noted through either fallopian tube, no spillage of dye into the abdominal cavity was noted. Instead, despite gentle traction downward, with increased injection of dye patient was noted to have further cramping and dye spilled into the vagina. The tubes were noted to not be patent on either side. The catheter balloon was then deflated and the catheter removed. The patient tolerated the procedure well. Precautions for return were discussed. As the patient has no history of pelvic inflammatory disease in the tubes were not noted to be dilated, periprocedural antibiotics were not indicated. Complications: none
== END ==
PROVIDERS: PCP Registered Nurse; Referring Provider Obstetrics & Gynecology; Visit Provider Obstetrics & Gynecology
DX: Z31.41 Encounter for fertility testing (principal); Z98.51 Tubal ligation status
CPT/HCPCS: 58340; 74740

== ENCOUNTER → 2021-03-03 08:46 | Outpatient (CLI) | payer BC, SELFPAY | PROVIDERS: PCP Registered Nurse; Referring Provider Obstetrics & Gynecology; Visit Provider Obstetrics & Gynecology | DX: Z13.29 Encounter for screening for other suspected endocrine disorder (principal) | CPT/HCPCS: 36415; 84443 ==

== ENCOUNTER → 2021-12-18 12:04 | Outpatient (CLI) | payer BC, SELFPAY | PROVIDERS: Visit Provider Nurse Practitioner Family | DX: N39.0 Urinary tract infection, site not specified (principal) | CPT/HCPCS: 87077; 87086 ==

== ENCOUNTER → 2022-01-06 08:44 | Outpatient (CLI) | payer BC, SELFPAY ==
[2022-01-07 17:17] LABS: Candida species Negative (Negative); Gardnerella vaginalis Positive (Negative); Trichomoas vaginalis Negative (Negative)
== END ==
PROVIDERS: Visit Provider Specialist
DX: Z11.3 Encounter for screening for infections with a predominantly sexual mode of transmission (principal)
CPT/HCPCS: 87480; 87510; 87660

== ENCOUNTER → 2022-06-09 12:05 | Outpatient (CLI) | payer BC, SELFPAY ==
[2022-06-09 13:26] LABS: Free T4, Direct Thyroxine 1.12 ng/dL (0.78-2.19)
[2022-06-09 13:40] LABS: Thyroid Stimulating Hormone 1.95 uIU/mL (0.47-4.68)
== END ==
PROVIDERS: Referring Provider Obstetrics & Gynecology; Visit Provider Obstetrics & Gynecology
DX: Z13.29 Encounter for screening for other suspected endocrine disorder (principal)
CPT/HCPCS: 36415; 84439; 84443

== ENCOUNTER → 2024-03-14 10:46 | Outpatient (CLI) | payer BC, SELFPAY | PROVIDERS: Visit Provider Physician Assistant | DX: R30.0 Dysuria (principal) | CPT/HCPCS: 87077; 87086 ==